=== PATIENT | female | born 1990 | race Caucasian/White ===

== ENCOUNTER 2021-07-17 05:32 | Inpatient (IN) | payer SELFPAY ==
[~2021-07-17] VITALS: Ht 162 cm; Wt 127.0 kg
[~2021-07-17 05:32] MED LIST: BUTA-234 PO
[2021-07-17] MEDS ORDERED: RT-ALBUTEROL HFA 8.5 GM INHALER IH ONE (05:55)
--- NOTE | 2021-07-17 06:23 | ED General ---
General Chief Complaint: COVID19 Suspect/Confirmed Stated Complaint: SOB,CP Source of Information: Patient Exam Limitations: No Limitations (SARA MORRIS MD) History of Present Illness Date Seen by Provider: Jul 17, 2021 Time Seen by Provider: 05:48 Initial Comments Here with complaint of shortness of breath, wheezing, cough and chest tightness. Onset 2 days ago and has worsened since. Started a new job with new [employer]. She has been vaccinated and has had both doses with the second dose last month. She did have childhood asthma but has not suffered from this as an adult. Denies nausea, vomiting or diarrhea currently although did have vomiting yesterday. Does not have any known contacts with COVID-19. Arrives with O2 sat of 81%. Timing/Duration: 2-3 Days, Getting Worse Severity: Moderate, Severe Associated Systoms: Cough; No Fever/Chills; Nausea/Vomiting, Shortness of Air, Weakness (SARA MORRIS MD) Allergies and Home Medications Allergies Coded Allergies: No Known Drug Allergies (Unverified , 04/09/14) Patient Home Medication List Home Medication List Reviewed: Yes (SARA MORRIS MD) Butalb/Acetaminophen/Caffeine (Hzpanl-Wtdu-Rpad 50-325-40 Tab) 1 Each Tablet, 1 EACH PO Q4HR PRN Prescribed by: JESI ESCALONA on 04/09/14 0358 Review of Systems Review of Systems Constitutional: see HPI; No fever; malaise, weakness EENTM: nose congestion, throat pain Respiratory: cough, short of breath, wheezing Cardiovascular: see HPI; No edema Gastrointestinal: No abdominal pain, No diarrhea; vomiting Genitourinary: no symptoms reported Musculoskeletal: no symptoms reported Skin: no symptoms reported Psychiatric/Neurological: No Symptoms Reported (SARA MORRIS MD) All Other Systems Reviewed Negative Unless Noted: Yes (SARA MORRIS MD) Past Cpncoyr-Rgrmwn-Letniv Hx Patient Social History Tobacco Use?: No Substance use?: No Alcohol Use?: No (SARA MORRIS MD) Tobacco Use?: Yes Tobacco type used: Cigarettes (DON MCKENZIE MD) Immunizations Up To Date Tetanus Booster (TDap): More than 5yrs (SARA MORRIS MD) Past Medical History Surgeries: No Respiratory: Yes Asthma Cardiac: No Neurological: No Reproductive Disorders: No Sexually Transmitted Disease: No HIV/AIDS: No Adverse Reaction/Blood Tranf: No (SARA MORRIS MD) Family Medical History Reviewed Nursing Family Hx (SARA MORRIS MD) No Pertinent Family Hx (SARA MORRIS MD) Physical Exam-Suspected Sepsis Physical Exam Vital Signs Vital Signs - First Documented 07/17/21 05:50 Temp 36.9 Pulse 105 Resp 24 B/P (MAP) 148/80 (102) Pulse Ox 94 O2 Delivery OxyMask O2 Flow Rate 8.00 (DON MCKENZIE MD) Vital Signs Capillary Refill : (SARA MORRIS MD) Height, Weight, BMI Height: 5'4" Weight: 240lbs. oz. 108.550902gj; BMI Method: General Appearance: WD/WN, Moderate Distress, Obese HEENT: PERRL/EOMI, Pharyngeal Erythema, Other (Nasal congestion) Neck: Full Range of Motion, Non Tender, Supple Respiratory: Decreased Breath Sounds, Respiratory Distress (Moderate), Wheezing (Throughout) Cardiovascular: No Murmur, Tachycardia Gastrointestinal: Non Tender, Soft Back: Normal Inspection, No CVA Tenderness, No Vertebral Tenderness Extremity: Normal Range of Motion, Non Tender Neurologic/Psychiatric: Alert, Oriented x3 Skin: normal color, warm/dry (SARA MORRIS MD) Focused Exam Lactate Level 07/17/21 06:30: Lactic Acid Level 0.98 (DON MCKENZIE MD) Lactic Acid Level Laboratory Tests Test 07/17/21 06:30 Lactic Acid Level 0.98 MMOL/L (0.50-2.00) (DON MCKENZIE MD) Progress/Results/Core Measures Suspected Sepsis SIRS Temperature: Pulse: Respiratory Rate: Laboratory Tests 07/17/21 06:08: Blood Pressure / Mean: 07/17/21 06:30: Laboratory Tests 07/17/21 06:08: Creatinine 0.72, Total Bilirubin 0.3 (SARA MORRIS MD) Results/Orders Lab Results Laboratory Tests Test 07/17/21 05:57 07/17/21 06:08 07/17/21 06:30 07/17/21 06:47 Range/Units Influenza Type A (RT-PCR) Not Detected Not Detecte Influenza Type B (RT-PCR) Not Detected Not Detecte SARS-CoV-2 RNA (RT-PCR) Not Detected Not Detecte Sodium Level 139 135-145 MMOL/L Potassium Level 4.2 3.6-5.0 MMOL/L Chloride Level 107 98-107 MMOL/L Carbon Dioxide Level 20 L 21-32 MMOL/L Anion Gap 12 5-14 MMOL/L Blood Urea Nitrogen 10 7-18 MG/DL Creatinine 0.72 0.60-1.30 MG/DL Estimat Glomerular Filtration Rate 96 BUN/Creatinine Ratio 14 Glucose Level 114 H 70-105 MG/DL Calcium Level 8.5 8.5-10.1 MG/DL Corrected Calcium 8.7 8.5-10.1 MG/DL Total Bilirubin 0.3 0.1-1.0 MG/DL Aspartate Amino Transf (AST/SGOT) 24 5-34 U/L Alanine Aminotransferase (ALT/SGPT) 15 0-55 U/L Alkaline Phosphatase 73 40-136 U/L C-Reactive Protein High Sensitivity 3.90 H 0.00-0.50 MG/DL Total Protein 7.5 6.4-8.2 GM/DL Albumin 3.8 3.2-4.5 GM/DL Procalcitonin 0.03 <0.10 NG/ML Serum Test, Qualitative NEGATIVE NEGATIVE Lactic Acid Level 0.98 0.50-2.00 MMOL/L White Blood Count 7.5 4.3-11.0 10^3/uL Red Blood Count 4.64 3.80-5.11 10^6/uL Hemoglobin 14.0 11.5-16.0 g/dL Hematocrit 42 35-52 % Mean Corpuscular Volume 91 80-99 fL Mean Corpuscular Hemoglobin 30 25-34 pg Mean Corpuscular Hemoglobin Concent 33 32-36 g/dL Red Cell Distribution Width 13.1 10.0-14.5 % Platelet Count 250 130-400 10^3/uL Mean Platelet Volume 10.0 9.0-12.2 fL Immature Granulocyte % (Auto) 0 % Neutrophils (%) (Auto) 69 42-75 % Lymphocytes (%) (Auto) 20 12-44 % Monocytes (%) (Auto) 9 0-12 % Eosinophils (%) (Auto) 1 0-10 % Basophils (%) (Auto) 1 0-10 % Neutrophils # (Auto) 5.2 1.8-7.8 10^3/uL Lymphocytes # (Auto) 1.5 1.0-4.0 10^3/uL Monocytes # (Auto) 0.7 0.0-1.0 10^3/uL Eosinophils # (Auto) 0.1 0.0-0.3 10^3/uL Basophils # (Auto) 0.0 0.0-0.1 10^3/uL Immature Granulocyte # (Auto) 0.0 0.0-0.1 10^3/uL Test 07/17/21 07:34 Range/Units Prothrombin Time 14.5 12.2-14.7 SEC INR Comment 1.1 0.8-1.4 Activated Partial Thromboplast Time 29 24-35 SEC D-Dimer 0.41 0.00-0.49 UG/ML (DON MCKENZIE MD) My Orders Orders - DON MCKENZIE MD Cbc With Automated Diff (07/17/21 06:03) Comprehensive Metabolic Panel (07/17/21 06:03) Blood Culture (07/17/21 06:03) Sputum Culture (07/17/21 06:03) Urinalysis (07/17/21 06:03) Urine Culture (07/17/21 06:03) Protime With Inr (07/17/21 06:03) Partial Thromboplastin Time (07/17/21 06:03) Chest 1 View, Ap/Pa Only (07/17/21 06:03) Ed Iv/Invasive Line Start (07/17/21 06:03) Ed Iv/Invasive Line Start (07/17/21 06:03) Vital Signs Adult Sepsis Patie Q15M (07/17/21 06:03) O2 (07/17/21 06:03) Remove Rings In Anticipation O (07/17/21 06:03) Lactic Acid Analyzer (07/17/21 06:03) Fibrin Degradation Products (07/17/21 06:03) Procalcitonin (Pct) (07/17/21 06:03) Hs C Reactive Protein (07/17/21 06:03) Influenza A And B By Pcr (07/17/21 06:03) Covid 19 Inhouse Test (07/17/21 06:03) Hcg,Qualitative Serum (07/17/21 06:03) Dexamethasone Injection (Decadron Inje (07/17/21 06:15) Lactated Ringers (Lr 1000 Ml Iv Solution (07/17/21 06:30) Albuterol Pre-Mix Nebs (Rt) (Proventil (07/17/21 08:30) Albuterol/Ipra Inhalation Soln (Duoneb I (07/17/21 08:30) Svn Small Volume Nebulizer (07/17/21 08:30) Svn Small Volume Nebulizer (07/17/21 08:30) Magnesium 1 Gm/100 Ml Ivpb (Magnesium Robles (07/17/21 08:45) (DON MCKENZIE MD) Medications Given in ED Current Medications Medications Dose Ordered Sig/Larry Route Start Time Stop Time Status Last Admin Dose Admin Albuterol Sulfate 8.5 gm STK-MED ONCE IH 07/17/21 05:55 07/17/21 05:57 DC 07/17/21 06:12 8.5 GM Dexamethasone Sodium Phosphate 6 mg ONCE ONCE IV 07/17/21 06:15 07/17/21 06:17 DC 07/17/21 06:50 6 MG Lactated Ringer's 1,000 ml @ 0 mls/hr Q0M ONCE IV 07/17/21 06:30 07/17/21 06:31 DC 07/17/21 06:50 1,000 MLS/HR (DON MCKENZIE MD) Vital Signs/I&O 07/17/21 07/17/21 05:50 05:50 Temp 36.9 Pulse 105 Resp 24 B/P (MAP) 148/80 (102) Pulse Ox 94 94 O2 Delivery OxyMask OxyMask O2 Flow Rate 8.00 (DON MCKENZIE MD) Vital Signs/I&O Capillary Refill : (SARA MORRIS MD) Progress Note : Progress Note Seen and evaluated. Placed on O2 via oxygen mask at 6 L to increase O2 saturation to 93%. Sepsis protocol initiated. Covid 19 screening and influenza screening initiated. Albuterol MDI 4 puffs via spacer given. We will give Decadron 6 mg IV. Monitor patient. Care transferred to Dr. Mckenzie at 0605 with all labs and x-ray pending. 0640: Unable to get IV after multiple sticks. I did place 20-gauge Angiocath to the area of the lower bicep on the right arm via ultrasound guidance x1 stick without difficulty. Labs drawn. Dr. Mckenzie to assume care. (SARA MORRIS MD) Progress Note : Time: 08:38 Progress Note Care of this patient was assumed from Dr. oMrris. Work-up was completely unremarkable. Despite getting dexamethasone and 4 puffs of an albuterol inhaler, she is still quite wheezy and hypoxic with an oxygen saturation of 88% on room air during my reassessment. Patient describes a history of childhood asthma but has not needed to treat it as an adult. Admission is necessary at this point. We will give her some magnesium and an hour-long nebulizer treatment in the ER while awaiting transfer to the medical floor. (DON MCKEZNIE MD) Diagnostic Imaging Diagonstic Imaging: Xray Plain Films/CT/US/NM/MRI: chest Comments Chest x-ray viewed by me and report reviewed. See report below: NAME: ALFONSO UNDERWOOD [facility] REC#: [id number] PT STATUS: REG ER : 1990 PHYSICIAN: DON MCKENZIE MD ADMIT DATE: 07/17/21/ER Draft Date of Exam:07/17/21 CHEST 1 VIEW, AP/PA ONLY INDICATION: hypoxia COMPARISON: None FINDINGS: Single frontal view of the chest demonstrates normal heart size and pulmonary vascularity. The lungs are well aerated and clear. No large pleural effusion or pneumothorax is seen. The visualized osseous structures show no acute abnormalities. IMPRESSION: 1. No acute cardiopulmonary process. Dictated on workstation # [id number] Dict: 07/17/2116 Trans: 07/17/2116 [facility] [id number] Interpreted by: JOSELO VELA MD (DON MCKENZIE MD) Departure Communication (Admissions) Time/Spoke to Admitting Phy: 08:35 Dr. Ashraf (DON MCKENZIE MD) Impression Primary Impression: Asthma exacerbation Qualified Codes: J45.901 - Unspecified asthma with (acute) exacerbation Additional Impression: Hypoxia Disposition: ADMITTED INPATIENT Condition: Stable Admissions Decision to Admit Reason: Admit from ER (General) Decision to Admit/Date: Jul 17, 2021 Time/Decision to Admit Time: 08:30 (DON MCKENZIE MD) Departure-Patient Inst. Referrals: NO,LOCAL PHYSICIAN (PCP/Family) Primary Care Physician SARA MORRIS MD Jul 17, 2021 06:23 DON MCKENZIE MD Jul 17, 2021 08:03
[2021-07-17 06:30] LABS: ALBUMIN 3.8 GM/DL (3.2-4.5); POTASSIUM 4.2 MMOL/L (3.6-5.0)
[2021-07-17] MEDS ORDERED: LACTATED RINGERS 1,000 ML IV ONE (06:30)
[2021-07-17 06:32] LABS: CALCIUM 8.5 MG/DL (8.5-10.1)
[2021-07-17 06:33] LABS: TOTAL PROTEIN 7.5 GM/DL (6.4-8.2)
[2021-07-17 06:35] LABS: BILIRUBIN,TOTAL 0.3 MG/DL (0.1-1.0)
[2021-07-17 06:37] LABS: CREATININE SERUM 0.72 MG/DL (0.60-1.30)
[2021-07-17 06:50] LABS: BASOPHILS % (AUTO) 1 % (0-10); EOSINOPHILS # (AUTO) 0.1 10^3/uL (0.0-0.3); EOSINOPHILS % (AUTO) 1 % (0-10); HEMATOCRIT 42 % (35-52); LYMPHOCYTES # (AUTO) 1.5 10^3/uL (1.0-4.0); LYMPHOCYTES % (AUTO) 20 % (12-44); MEAN CORPUSCULAR HEMOGLOBIN 30 pg (25-34); MEAN CORPUSCULAR HGB CONC 33 g/dL (32-36); MEAN CORPUSCULAR VOLUME 91 fL (80-99); MONOCYTES # (AUTO) 0.7 10^3/uL (0.0-1.0); MONOCYTES % (AUTO) 9 % (0-12); NEUTROPHILS # (AUTO) 5.2 10^3/uL (1.8-7.8); NEUTROPHILS % (AUTO) 69 % (42-75); PLATELET COUNT 250 10^3/uL (130-400); WHITE BLOOD COUNT 7.5 10^3/uL (4.3-11.0)
--- NOTE | 2021-07-17 07:17 | Diagnostic Imaging Report ---
INDICATION: hypoxia COMPARISON: None FINDINGS: Single frontal view of the chest demonstrates normal heart size and pulmonary vascularity. The lungs are well aerated and clear. No large pleural effusion or pneumothorax is seen. The visualized osseous structures show no acute abnormalities. IMPRESSION: 1. No acute cardiopulmonary process. Dictated by: Dictated on workstation # [id number]
[2021-07-17 08:02] LABS: FIBRIN DEGRADATION PRODUCTS 0.41 UG/ML (0.00-0.49); INR 1.1 (0.8-1.4); PROTHROMBIN TIME PATIENT 14.5 SEC (12.2-14.7)
[2021-07-17] MEDS ORDERED: RT-ALBUTEROL/IPRATROPIUM 3 ML (DUONEB) VIAL INH ONE (08:30)
[2021-07-17] MEDS ORDERED: RT-ALBUTEROL SULF 2.5 MG/3 ML PRE-MIX VIAL INH STA (08:30)
[2021-07-17] MEDS ORDERED: MAGNESIUM 1 GM/100 ML IVPB 100 ML IV ONE (08:45)
[2021-07-17 08:58] LABS: BILIRUBIN,URINE NEGATIVE (NEGATIVE); CLARITY,URINE CLEAR; COLOR,URINE YELLOW; GLUCOSE, URINE (UA) NEGATIVE (NEGATIVE); KETONES,URINE NEGATIVE (NEGATIVE); LEUKOCYTE ESTERASE ,URINE 1+ (NEGATIVE); NITRITE,URINE NEGATIVE (NEGATIVE); PROTEIN,URINE 1+ (NEGATIVE)
[2021-07-17 09:11] LABS: BACTERIA,URINE LARGE /HPF
[2021-07-17 10:18] VITALS: BP 122/80
[2021-07-17] MEDS ORDERED: RT-ALBUTEROL SULF 2.5 MG/3 ML PRE-MIX VIAL INH PRN (10:30)
[2021-07-17] MEDS ORDERED: ONDANSETRON 4 MG/2 ML (SDV) Z0FRAN IVP PRN (10:30)
[2021-07-17] MEDS: LACTATED RINGERS 1,000 ML IV SCH ×2 (10:51→21:17)
--- NOTE | 2021-07-17 10:58 | History & Physical-Hospitalist ---
NATALIO BONILLA 07/17/21 1058: History of Present Illness HPI/Chief Complaint The patient is a 30 YO female, with a history of asthma in childhood, who is in the hospital for an acute asthma exacerbation. The patient reports, experiencing shortness of breath and chest tightness starting on Saturday, which worsened with time. Her symptoms were the worst yesterday night. The patient reports a history of cigarette smoking for 10 years, smoking 1-2 packs per day. She had an episode of vomiting last night at 5pm, with no associated nausea. Date Seen 07/17/21 Attending Physician Tejal Almonte MD PCP No,Local Physician Referring Physician Date of Admission Jul 17, 2021 at 08:36 Home Medications & Allergies Home Medications Reviewed patient Home Medication Reconciliation performed by pharmacy medication reconciliations process maintenance technician and/or nursing. Patients Allergies have been reviewed. Allergies Allergies Coded Allergies No Known Drug Allergies (Unverified04/09/14) Past Aalwylg-Mwejxh-Kktpfi Hx Patient Social History Tobacco Use?: Yes Tobacco type used: Cigarettes Smoking Status: Current Everyday Smoker Substance use?: No Alcohol Use?: No Pt feels they are or have been: No Immunizations Up To Date First/Initial COVID19 Vaccinat: 05/2021 Second COVID19 Vaccination Juanito: 06/2021 Tetanus Booster (TDap): More Than 5 Years Current Status status: No status: No Communicates: Verbally Primary Language: Israeli Preferred Spoken Language: Israeli Past Medical History Asthma Sexually Transmitted Disease: No HIV/AIDS: No Adverse Reaction/Blood Tranf: No Family Medical History Reviewed Nursing Family Hx No Pertinent Family Hx Review of Systems Constitutional: No chills, No fever EENTM: No blurred vision, No double vision Respiratory: short of breath, wheezing Gastrointestinal: No nausea; vomiting (yesterday at 5pm ) Genitourinary: No dysuria, No hematuria Musculoskeletal: No joint pain, No muscle pain Psychiatric/Neurological: Denies Depressed, Denies Emotional Problems Physical Exam Physical Exam Vital Signs Vital Signs - First Documented 07/17/21 05:50 Temp 36.9 Pulse 105 Resp 24 B/P (MAP) 148/80 (102) Pulse Ox 94 O2 Delivery OxyMask O2 Flow Rate 8.00 Capillary Refill : Height, Weight, BMI Height: 5'4" Weight: 240lbs. oz. 108.812662yx; 48.00 BMI Method: General Appearance: No Apparent Distress, WD/WN, Obese Eyes: Bilateral Eye Normal Inspection, Bilateral Eye PERRL, Bilateral Eye EOMI HEENT: PERRL/EOMI Respiratory: Chest Non Tender, No Accessory Muscle Use, Wheezing (bilaterally ) Cardiovascular: Tachycardia Gastrointestinal: No Organomegaly, No Pulsatile Mass, Non Tender Rectal: Deferred Extremity: Normal Inspection, No Calf Tenderness, No Pedal Edema Neurologic/Psychiatric: Alert, Oriented x3, No Motor/Sensory Deficits, Normal Mood/Affect Skin: Normal Color, Warm/Dry Results Results/Procedures Labs Laboratory Tests 07/17/21 06:08 07/17/21 06:47 Patient resulted labs reviewed. Assessment/Plan Assessment and Plan 30 yo female with an acute asthma exacerbation, tobacco use disorder, and obesity. Acute asthma exacerbation Continue albuterol, and prednisone therapy Tobacco use disorder Recommended smoking cessation, PT understands this will help reduce repeat asthma exacerbations Obesity No acute management at this time TEJAL ALMONTE MD 07/17/21 1752: History of Present Illness Source: patient Exam Limitations: no limitations Time Seen by a Provider: 11:15 Past Srvwumc-Cdihjn-Esdwqq Hx Patient Social History Tobacco Use?: Yes Tobacco type used: Cigarettes Smoking Status: Current Everyday Smoker Past Medical History Asthma Family Medical History No Pertinent Family Hx Results Results/Procedures Imaging: Reviewed Imaging Report Assessment/Plan Admission Diagnosis Acute asthma exacerbation Admission Status: Inpatient Order (span 2 midnights) Reason for Inpatient Admission: Respiratory failure Assessment and Plan Admitted with acute respiratory failure due to asthma exacerbation. Started on steroids and breathing treatments. Diagnosis/Problems Diagnosis/Problems (1) Acute respiratory failure with hypoxia Status: Acute (2) Acute asthma exacerbation Status: Acute (3) Tobacco abuse Status: Chronic (4) Morbid obesity Status: Chronic Supervisory-Addendum Brief Verification & Attestation Participated in pt care: history, MDM, physical Personally performed: exam, history, MDM, supervision of care Care discussed with: Medical Student Procedures: n/a Results interpretation: Verified all documentation A medical student performed and documented this service in my presence. I reviewed and verified all information documented by the medical student and made modifications to such information, when appropriate. I personally performed the physical exam and medical decision making. NATALIO BONILLA Jul 17, 2021 10:58 TEJAL ALMONTE MD Jul 17, 2021 17:52
[2021-07-17 11:24] VITALS: BP 121/66
[2021-07-17] MEDS ORDERED: ACET-2267 PO (14:19)
[2021-07-17] MEDS ORDERED: IBUP-2473 PO (14:21)
[2021-07-17 15:58] VITALS: BP 130/77
[2021-07-17] MEDS: RT-ALBUTEROL/IPRATROPIUM 3 ML (DUONEB) VIAL INH SCH ×2 (18:54→21:49)
[2021-07-17 19:55] VITALS: BP 129/89
[2021-07-17] MEDS ORDERED: ALPRAZolam 0.25 MG (XANAX) TAB PO PRN (20:30)
[2021-07-17] MEDS ORDERED: morphine INJ 10 MG/ML 1ML (SYR OR VIAL) IVP PRN (20:30)
[2021-07-17] MEDS ORDERED: LOPERAMIDE 2 MG (IMODIUM) TABLET PO PRN (20:30)
[2021-07-17] MEDS ORDERED: diphenhydrAMINE 25 MG TAB (BENADRYL) PO PRN (20:30)
[2021-07-17] MEDS ORDERED: MELATONIN 3 MG TABLET PO PRN (20:30)
[2021-07-17] MEDS ORDERED: ACETAMINOPHEN 500 MG TAB (TYLENOL) PO PRN (20:30)
[2021-07-17] MEDS ORDERED: DOCUSATE SODIUM 100 MG (COLACE) CAP PO PRN (20:30)
[2021-07-17] MEDS ORDERED: HYDROcodone/APAP 5 MG/325 MG (LORTAB) TAB PO PRN (20:30)
[2021-07-17] MEDS ORDERED: CALCIUM CARBONATE 500 MG (TUMS) TAB.CHEW PO PRN (20:30)
[2021-07-17] MEDS: SENNA W/DOCUSATE (SENOKOT S) TABLET PO SCH (21:18)
[2021-07-17] MEDS: ENOXAPARIN 40 MG/0.4 ML (LOVENOX) SYR SC SCH (23:24)
[2021-07-18 00:45] VITALS: BP 122/76
[2021-07-18] MEDS: RT-ALBUTEROL/IPRATROPIUM 3 ML (DUONEB) VIAL INH SCH ×6 (02:28→21:32)
[2021-07-18 04:58] VITALS: BP 118/70
[2021-07-18] MEDS ORDERED: predniSONE 20 MG TAB PO SCH (07:00)
[2021-07-18] MEDS: LACTATED RINGERS 1,000 ML IV SCH (07:26)
[2021-07-18 08:10] VITALS: BP 130/81
[2021-07-18] MEDS: SENNA W/DOCUSATE (SENOKOT S) TABLET PO SCH ×2 (09:03→19:53)
[2021-07-18] MEDS: ENOXAPARIN 40 MG/0.4 ML (LOVENOX) SYR SC SCH ×2 (09:04→20:15)
[2021-07-18 11:24] VITALS: BP 133/87
[2021-07-18] MEDS ORDERED: FLUTICASONE/VILANTEROL 200 MCG 14'S (BREO) IH SCH (11:30)
--- NOTE | 2021-07-18 11:33 | Pulmonary Consultation ---
History of Present Illness History of Present Illness Date Seen by Provider: Jul 18, 2021 Time Seen by Provider: 11:28 Date of Admission 07/17/21 History of Present Illness She is a 30-year-old female with past medical history of morbid obesity and childhood asthma which she has been free of asthma during the last several years was in her usual state of health until about 2 days ago and started having chest tightness on Saturday and started wheezing yesterday that is on Saturday. She denies any fever. She smokes about 1 to 2 packs of cigarettes per day for over the last 10 years. Recently she was not using any bronchodilators. She denies any exposure to Covid patient. She was found to be hypoxic on room air with an oxygen saturation of 81 initially requiring 6 L of oxygen and admitted to the hospital with exacerbation of asthma and started on initially dexamethasone followed by oral prednisone. Today I was called on consultation to see whether patient can be discharged and recommendations on discharge medications. . Today I have made a video visit and discussed with the patient and she feels better and eager to go home. She is able to walk around in the hallway denies any wheezing today. She is on a room air. I have discussed with the attending physician Dr. Ashraf and he feels that she is looking much better and wants to discharge her home. We will plan discharge on high-dose prednisone in addition to albuterol inhaler, Breo Ellipta if her peak flows are optimal. Otherwise to keep her another day and give iv steroids.. Allergies and Home Medications Allergies Coded Allergies: No Known Drug Allergies (Unverified , 04/09/14) Home Medications Acetaminophen 500 Mg Tablet, 1,000 MG PO DAILY PRN for PAIN-MILD (1-4), (Reported) TAKES 2 (500MG) TABLETS Ibuprofen 200 Mg Tablet, 400 MG PO DAILY PRN for PAIN-MILD (1-4), (Reported) TAKES 2 (200MG) TABLETS Past Medical/Social/Family Hx Patient Social History Tobacco Use?: Yes Tobacco type used: Cigarettes Smoking Status: Current Everyday Smoker Use of E-Cig and/or Vaping dev: No Substance use?: No Substance frequency: Once in a while Alcohol Use?: No Alcohol type: Hard Liquor Alcohol Frequency: Once in a while Pt stated abuse/neglect: No Immunizations Up To Date Influenza Vaccine Up-to-Date: Yes; Up-to-Date First/Initial COVID19 Vaccinat: 05/2021 Second COVID19 Vaccination Juanito: 06/2021 Tetanus Booster (TDap): More Than 5 Years Current Status status: No status: No Advance Directives: No Communicates: Verbally Primary Language: Barbadian Preferred Spoken Language: Barbadian Is interpretation needed?: No Implanted or Applied Medical D: None Review of Systems Constitutional: see HPI Other ROS PER ATTENDING Sepsis Event Evaluation Height, Weight, BMI Height: 5'4" Weight: 240lbs. oz. 108.072247ww; 48.39 BMI Method: Exam Exam Patient acknowledged, consented, and participated in this virtual visit which was conducted using real time audio/video Vital Signs Date Time Temp Pulse Resp B/P (MAP) Pulse Ox O2 Delivery O2 Flow Rate FiO2 07/18/21 11:24 36.8 100 18 133/87 (102) 94 Room Air 07/18/21 11:06 96 OxyMask 07/18/21 09:00 OxyMask 1.00 07/18/21 08:10 36.4 92 22 130/81 (97) 98 OxyMask 2.00 07/18/21 07:31 96 OxyMask 1.00 07/18/21 04:58 36.3 82 24 118/70 (86) 96 OxyMask 2.00 07/18/21 02:28 96 OxyMask 2.00 07/18/21 00:45 36.3 81 22 122/76 (91) 99 OxyMask 3.00 07/17/21 21:49 95 OxyMask 5.00 07/17/21 20:00 99 OxyMask 4.00 07/17/21 19:55 36.6 99 25 129/89 (102) 96 OxyMask 6.00 07/17/21 18:54 93 OxyMask 7.00 07/17/21 16:57 96 OxyMask 6.00 07/17/21 15:58 36.4 90 24 130/77 (94) 97 OxyMask 6.00 I & O 07/18/21 07:00 Intake Total 1985 ml Balance 1985 ml Height & Weight Height: 5'4" Weight: 240lbs. oz. 108.949173nu; 48.39 BMI Method: General Appearance: No Apparent Distress, WD/WN, Obese HEENT: PERRL/EOMI Neck: Full Range of Motion, Non Tender, Supple Respiratory: Chest Non Tender, No Accessory Muscle Use, Other (NO WHEEZING AT THIS TIME) Cardiovascular: Tachycardia Extremity: Normal Inspection, No Calf Tenderness, No Pedal Edema Neurologic/Psychiatric: Alert, Oriented x3, No Motor/Sensory Deficits, Normal Mood/Affect Skin: Normal Color, Warm/Dry Other comments PE PER ATTENDING. Results Lab Laboratory Tests 07/17/21 06:08 07/17/21 06:47 Assessment/Plan Assessment/Plan 1. EXACERBATION ASTHMA IMPROVING. 2. HYPOXIA RESOLVED. 3. MORBID OBESITY. 4.TOBACCO ABUSE DISORDER. PLAN. 1. CHECK PEAK FLOW AND IF ADEQUATE MAY DISCHARGE ON PO PREDNISONE AND BREO ELLIPTA AND ALBUTEROL.MDI 2. IF PEAK FLOW LESS THAN OPTIMAL GIVE HER SOLUMEDROL FOR A DAY OR TWO AND KEEP MONITORING HER PEAK FLOWS 3. CHECK RESPIRATORY VIRAL PCRS TO R/O INFECTIONS LIKE RSV. 4. ADVISED TO QUIT SMOKING. 5. WEIGHT REDUCTION WOULD HELP HER BREATHING IN THE LONG RUN. Critical Care: Critically Ill Patient Time spent with patient (mins): 40 Diagnosis/Problems Problems/Diagonsis (1) Acute asthma exacerbation Status: Acute (2) Tobacco abuse Status: Chronic (3) Morbid obesity Status: Chronic ADELIA AC MD Jul 18, 2021 11:33
[2021-07-18] MEDS ORDERED: RT--FLUTICASONE/SALMETEROL 232-14 (AIRDUO RespiCLICK) IH SCH ×2 (12:00→21:00)
--- NOTE | 2021-07-18 12:14 | Progress Note - Hospitalist ---
NATALIO BONILLA 07/18/21 1214: Subjective HPI/CC On Admission Date Seen by Provider: Jul 18, 2021 Time Seen by Provider: 08:45 Subjective/Events-last exam PT was laying in bed comfortably this morning. She was wearing an Oxymask. Patient reports that her breathing is better compared to yesterday. She reports still having coughing which is unchanged compared to yesterday. Denies fevers. Review of Systems General: No Chills, No Night Sweats HEENT: No Head Aches, No Visual Changes Pulmonary: Dyspnea (improved), Cough Cardiovascular: No: Chest Pain, Palpitations Gastrointestinal: No: Nausea, Vomiting Musculoskeletal: other (no joint pain, no muscle pain ) Focused Exam Lactate Level 07/17/21 06:30: Lactic Acid Level 0.98 Objective Exam Vital Signs Vital Signs Date Time Temp Pulse Resp B/P (MAP) Pulse Ox O2 Delivery O2 Flow Rate FiO2 07/18/21 11:38 Room Air 07/18/21 11:24 36.8 100 18 133/87 (102) 94 07/18/21 09:00 1.00 Capillary Refill : General Appearance: No Apparent Distress, WD/WN, Obese HEENT: PERRL/EOMI Respiratory: Chest Non Tender, No Accessory Muscle Use, No Respiratory Distress, Wheezing (bilateral on anterior posts) Cardiovascular: Regular Rate, Rhythm, No Edema, No Murmur Gastrointestinal: No Organomegaly, No Pulsatile Mass, Non Tender, Soft Rectal: Deferred Neurologic/Psychiatric: Alert, Oriented x3, No Motor/Sensory Deficits, Normal Mood/Affect Skin: Normal Color, Warm/Dry Results/Procedures Lab Patient resulted labs reviewed. Imaging: Reviewed Imaging Report Assessment/Plan Assessment and Plan Assess & Plan/Chief Complaint 30 yo female with an acute asthma exacerbation, tobacco use disorder, and obesity. Acute asthma exacerbation Continue albuterol, and prednisone therapy, DC Oxymask. Pulmonology consulted to discuss asthma home medication. Tobacco use disorder Recommended smoking cessation, PT understands this will help reduce repeat asthma exacerbations Obesity No acute management at this time ROSAURA ALMONTE MD 07/18/21 1623: Subjective HPI/CC On Admission Time Seen by Provider: 10:20 Assessment/Plan Assessment and Plan Assess & Plan/Chief Complaint Pulmonology consulted. Recommended peak flow which was severely decreased. Transitioned to IV steroids. MAT protocol. Monitor closely. Diagnosis/Problems Diagnosis/Problems (1) Acute asthma exacerbation Status: Acute (2) Tobacco abuse Status: Chronic (3) Morbid obesity Status: Chronic Supervisory-Addendum Brief Verification & Attestation Participated in pt care: history, MDM, physical Personally performed: exam, history, MDM, supervision of care Care discussed with: Medical Student Procedures: n/a Results interpretation: Verified all documentation A medical student performed and documented this service in my presence. I reviewed and verified all information documented by the medical student and made modifications to such information, when appropriate. I personally performed the physical exam and medical decision making. NATALIO BONILLA Jul 18, 2021 12:14 ROSAURA ALMONTE MD Jul 18, 2021 16:23
[2021-07-18] MEDS: methylPREDNISolone 40 MG/ML (Solu-MEDROL) VIAL IV SCH ×2 (15:34→20:15)
[2021-07-18 16:00] VITALS: BP 136/77
[2021-07-18 19:58] VITALS: BP 148/93
[2021-07-18] MEDS: RT--FLUTICASONE/SALMETEROL 232-14 (AIRDUO RespiCLICK) IH SCH (21:34)
[2021-07-19] VITALS (7 sets, daily range): BP systolic 115–163; BP diastolic 61–83
[2021-07-19] MEDS: RT-ALBUTEROL/IPRATROPIUM 3 ML (DUONEB) VIAL INH SCH ×6 (03:18→21:59)
[2021-07-19] MEDS: methylPREDNISolone 40 MG/ML (Solu-MEDROL) VIAL IV SCH ×3 (04:48→20:10)
[2021-07-19] MEDS: RT--FLUTICASONE/SALMETEROL 232-14 (AIRDUO RespiCLICK) IH SCH ×2 (07:23→21:59)
[2021-07-19] MEDS: SENNA W/DOCUSATE (SENOKOT S) TABLET PO SCH ×2 (08:07→20:09)
[2021-07-19] MEDS: ENOXAPARIN 40 MG/0.4 ML (LOVENOX) SYR SC SCH ×2 (08:07→20:10)
--- NOTE | 2021-07-19 09:23 | Pulmonary Progress Note ---
Subjective Date Seen by a Provider: Jul 19, 2021 Time Seen by a Provider: 09:16 Subjective/Events-last exam Patient yesterday had a peak flow of only about less than 100 and she is kept in the house. Apparently last night she became hypoxic requiring supplemental oxygen. The oxygen saturation is as low as 85%. Today she is feeling slightly better and peak flow is 190. She is still wheezing however her exercise tolerance slightly improved. She does admit that she does not have any insurance and she cannot afford outpatient medications and she needed some help. I have discussed with the RN to get .e62 addressed the issue if we could help with the medications. She denies any fever. Currently no chest pain. Cough is improving. Review of Systems ROS PER ATTENDING Sepsis Event Evaluation Height, Weight, BMI Height: 5'4" Weight: 240lbs. oz. 108.987711lb; 48.39 BMI Method: Focused Exam Lactate Level 07/17/21 06:30: Lactic Acid Level 0.98 Exam Exam Patient acknowledged, consented, and participated in this virtual visit which was conducted using real time audio/video Vital Signs Date Time Temp Pulse Resp B/P (MAP) Pulse Ox O2 Delivery O2 Flow Rate FiO2 07/19/21 08:00 36.1 87 22 138/76 (96) 88 OxyMask 2.00 07/19/21 07:23 95 OxyMask 2.00 07/19/21 04:51 36.7 72 22 138/78 (98) 93 OxyMask 2.00 07/19/21 03:18 94 Room Air 07/19/21 00:39 36.6 84 20 124/70 (88) 92 OxyMask 2.00 07/18/21 21:34 93 Room Air 07/18/21 20:15 93 Room Air 07/18/21 19:58 36.3 90 20 148/93 (111) 93 Room Air 07/18/21 19:15 96 Room Air 07/18/21 16:00 37.0 91 20 136/77 (96) 94 Room Air 07/18/21 15:29 93 Room Air 07/18/21 11:38 Room Air 07/18/21 11:24 36.8 100 18 133/87 (102) 94 Room Air 07/18/21 11:06 96 OxyMask I & O 07/19/21 07:00 Intake Total 3200 ml Balance 3200 ml Height & Weight Height: 5'4" Weight: 240lbs. oz. 108.046683iv; 48.39 BMI Method: General Appearance: No Apparent Distress, WD/WN, Obese HEENT: PERRL/EOMI Neck: Full Range of Motion, Non Tender, Supple Respiratory: Chest Non Tender, No Accessory Muscle Use, No Respiratory Distress, Wheezing (bilateral on anterior posts) Cardiovascular: Regular Rate, Rhythm, No Edema, No Murmur Extremity: Normal Inspection, No Calf Tenderness, No Pedal Edema Neurologic/Psychiatric: Alert, Oriented x3, No Motor/Sensory Deficits, Normal Mood/Affect Skin: Normal Color, Warm/Dry Other comments VIDEO VISIT MADE AND AUSCULTATED VIA ECHO. SHE HAS MILD DECREASED BREATH SOUNDS BILATERALLY WITH FEW EXPIRATORY RHONCHI POSTERIORLY. S1, S2 HEARD NORMALLY. Results Lab RSV PCR NEGATIVE. PEAK FLOW 190 LPM Meds REVIEWED. Assessment/Plan Assessment/Plan Assessment/Plan 1. EXACERBATION ASTHMA IMPROVING BUT NOT SATISFACTORY TO DISCHARGE 2. HYPOXIA REQUIRING O2. 3. MORBID OBESITY. 4.TOBACCO ABUSE DISORDER. PLAN. 1.CONTINUE IV SOLU-MEDROL AND NEB TREATMENTS. 2.MONITOR PEAK FLOWS 3.MANAGER CASH TO HELP FOR OUT PATIENT MEDICATIONS FINANCES 4. ADVISED TO QUIT SMOKING. 5. WEIGHT REDUCTION WOULD HELP HER BREATHING IN THE LONG RUN. 6. DISCUSSED WITH RN AND PATIENT. Critical Care: Critically Ill Patient Time spent with patient (mins): 20 Diagnosis/Problems Diagnosis/Problems (1) Acute asthma exacerbation Status: Acute (2) Tobacco abuse Status: Chronic (3) Morbid obesity Status: Chronic ADELIA AC MD Jul 19, 2021 09:23
--- NOTE | 2021-07-19 12:07 | Progress Note - Hospitalist ---
NATALIO BONILLA 07/19/21 1207: Subjective HPI/CC On Admission Date Seen by Provider: Jul 19, 2021 Time Seen by Provider: 08:30 Subjective/Events-last exam PT was laying in bed comfortably this morning. She reports her breathing symptoms seem to cycle between improving, and getting worse. She was on room air this morning. She denies fevers, nausea and vomiting. Review of Systems General: No Chills, No Night Sweats HEENT: No Head Aches, No Visual Changes Pulmonary: Dyspnea (comes and goes, but reports its as improved), Cough (minor ) Cardiovascular: No: Chest Pain, Palpitations Gastrointestinal: No: Nausea, Vomiting Genitourinary: No Dysuria, No Hematuria Musculoskeletal: No: shoulder pain, leg pain Neurological: No: Weakness, Numbness Focused Exam Lactate Level 07/17/21 06:30: Lactic Acid Level 0.98 Objective Exam Vital Signs Vital Signs Date Time Temp Pulse Resp B/P (MAP) Pulse Ox O2 Delivery O2 Flow Rate FiO2 07/19/21 10:48 97 OxyMask 2.00 07/19/21 08:00 36.1 87 22 138/76 (96) Capillary Refill : Results/Procedures Lab Patient resulted labs reviewed. Imaging: Reviewed Imaging Report Assessment/Plan Assessment and Plan Assess & Plan/Chief Complaint 30 yo female with an acute asthma exacerbation, tobacco use disorder, and obesity. Acute asthma exacerbation Continue albuterol, and prednisone therapy. Continue on room air. Possible DC from hospital tomorrow if she continues to be stable and not worsening. Tobacco use disorder Recommended smoking cessation, PT understands this will help reduce repeat asthma exacerbations Obesity No acute management at this time ROSAURA ALMONTE MD 07/19/21 1719: Subjective HPI/CC On Admission Time Seen by Provider: 11:05 Objective Exam General Appearance: No Apparent Distress, Obese Respiratory: No Respiratory Distress, Wheezing Cardiovascular: Regular Rate, Rhythm, No Edema, No Murmur Gastrointestinal: Normal Bowel Sounds, Non Tender, Soft Extremity: Normal Inspection, Non Tender, No Pedal Edema Neurologic/Psychiatric: Alert, Oriented x3, No Motor/Sensory Deficits, Normal Mood/Affect Skin: Normal Color, Warm/Dry Assessment/Plan Assessment and Plan Assess & Plan/Chief Complaint Admitted with asthma exacerbation. Symptoms improving. Peak flow improving. Continue steroids and inhalers. Diagnosis/Problems Diagnosis/Problems (1) Acute asthma exacerbation Status: Acute (2) Tobacco abuse Status: Chronic (3) Morbid obesity Status: Chronic Supervisory-Addendum Brief Verification & Attestation Participated in pt care: history, MDM, physical Personally performed: exam, history, MDM, supervision of care Care discussed with: Medical Student Procedures: n/a Results interpretation: Verified all documentation A medical student performed and documented this service in my presence. I reviewed and verified all information documented by the medical student and made modifications to such information, when appropriate. I personally performed the physical exam and medical decision making. NATALIO BONILLA Jul 19, 2021 12:07 ROSAURA ALMONTE MD Jul 19, 2021 17:19
[2021-07-20] MEDS: RT-ALBUTEROL/IPRATROPIUM 3 ML (DUONEB) VIAL INH SCH ×6 (02:38→22:17)
[2021-07-20 03:28] VITALS: BP 137/78
[2021-07-20] MEDS: methylPREDNISolone 40 MG/ML (Solu-MEDROL) VIAL IV SCH ×3 (03:28→19:25)
[2021-07-20] MEDS: RT--FLUTICASONE/SALMETEROL 232-14 (AIRDUO RespiCLICK) IH SCH ×2 (07:53→18:38)
[2021-07-20 08:00] VITALS: BP 152/83
[2021-07-20] MEDS: SENNA W/DOCUSATE (SENOKOT S) TABLET PO SCH ×2 (08:22→19:18)
[2021-07-20] MEDS: ENOXAPARIN 40 MG/0.4 ML (LOVENOX) SYR SC SCH ×2 (08:22→19:25)
--- NOTE | 2021-07-20 10:08 | Pulmonary Progress Note ---
Subjective Date Seen by a Provider: Jul 20, 2021 Time Seen by a Provider: 10:01 Subjective/Events-last exam She today states that feeling slightly better and her oxygen needs decreasing but still on O2. she did not yet walked in the room or outside the room. Apparently Deasat study has been ordered. meat process worker reportedly visited her and making arrangements for her help for home meds and possibly oxygen. Video visit made and discussed with patient. she is not in any distress. Review of Systems ROS PER ATTENDING Sepsis Event Evaluation Height, Weight, BMI Height: 5'4" Weight: 240lbs. oz. 108.554989nf; 48.39 BMI Method: Exam Exam Patient acknowledged, consented, and participated in this virtual visit which was conducted using real time audio/video Vital Signs Date Time Temp Pulse Resp B/P (MAP) Pulse Ox O2 Delivery O2 Flow Rate FiO2 07/20/21 08:00 36.4 82 20 152/83 (106) 97 OxyMask 4.00 07/20/21 07:53 93 OxyMask 4.00 07/20/21 03:28 36.6 77 20 137/78 (97) 95 OxyMask 4.00 07/20/21 02:38 93 OxyMask 4.00 07/19/21 23:24 36.4 85 20 115/61 (79) 96 OxyMask 4.00 07/19/21 22:00 99 OxyMask 4.00 07/19/21 20:13 Nasal Cannula 2.00 07/19/21 19:30 37.0 110 20 150/83 (105) 92 OxyMask 2.00 07/19/21 18:34 97 Nasal Cannula 2.00 07/19/21 15:47 36.3 86 20 163/76 (105) 91 Room Air 07/19/21 15:17 97 Nasal Cannula 2.00 07/19/21 12:00 36.6 97 18 127/79 (95) 93 Nasal Cannula 2.00 07/19/21 10:48 97 OxyMask 2.00 I & O 07/20/21 06:59 Intake Total 1880 ml Balance 1880 ml Height & Weight Height: 5'4" Weight: 240lbs. oz. 108.530391yg; 48.39 BMI Method: General Appearance: No Apparent Distress, Obese HEENT: PERRL/EOMI Neck: Full Range of Motion, Non Tender, Supple Respiratory: No Respiratory Distress, Wheezing Cardiovascular: Regular Rate, Rhythm, No Edema, No Murmur Extremity: Normal Inspection, Non Tender, No Pedal Edema Neurologic/Psychiatric: Alert, Oriented x3, No Motor/Sensory Deficits, Normal Mood/Affect Skin: Normal Color, Warm/Dry Other comments PE per attending. she has very few expiratory rhonchi Assessment/Plan Assessment/Plan 1. EXACERBATION ASTHMA IMPROVING SLOWLY 2. HYPOXIA REQUIRING O2. DESAT STUDY PENDING 3. MORBID OBESITY. 4.TOBACCO ABUSE DISORDER. PLAN. 1.CONTINUE IV SOLU-MEDROL AND NEB TREATMENTS. 2.MONITOR PEAK FLOWS 3.SAND HAULER TO HELP FOR OUT PATIENT MEDICATIONS FINANCES 4. ADVISED TO QUIT SMOKING. 5. WEIGHT REDUCTION WOULD HELP HER BREATHING IN THE LONG RUN. 6. DISCUSSED WITH RN AND PATIENT. 7. ONCE HOME O2 ARRANGEMENTS AND MEDICATIONS ARRANGEMENTS MADE MAY DISCHARGE ON STEROIDS PO , ALBUTEROL MDI, BREO ELLIPTA [id number] 1 PUFF DAILY . Critical Care: Critically Ill Patient Time spent with patient (mins): 20 Diagnosis/Problems Diagnosis/Problems (1) Acute asthma exacerbation Status: Acute (2) Tobacco abuse Status: Chronic (3) Morbid obesity Status: Chronic ADELIA AC MD Jul 20, 2021 10:08
[2021-07-20] MEDS ORDERED: FLUTICASONE/VILANTEROL 200 MCG 14'S (BREO) IH SCH (10:45)
--- NOTE | 2021-07-20 11:19 | Progress Note - Hospitalist ---
NATALIO BONILLA 07/20/21 1119: Subjective HPI/CC On Admission Date Seen by Provider: Jul 20, 2021 Time Seen by Provider: 08:45 Subjective/Events-last exam The patient was laying in bed comfortably this morning. She reports feeling better compared to yesterday. She reports that her cough is still there but is "less and less" with time. She reports that her shortness of breath is about this same. Review of Systems General: No Chills, No Night Sweats HEENT: No Head Aches, No Visual Changes Pulmonary: Dyspnea (about the same ), Cough (improving ) Cardiovascular: No: Chest Pain, Palpitations Gastrointestinal: No: Nausea, Vomiting Musculoskeletal: No: shoulder pain, leg pain Objective Exam Vital Signs Vital Signs Date Time Temp Pulse Resp B/P (MAP) Pulse Ox O2 Delivery O2 Flow Rate FiO2 07/20/21 12:00 36.9 100 20 166/92 (116) 91 Nasal Cannula 4.00 Capillary Refill : General Appearance: No Apparent Distress, Obese HEENT: PERRL/EOMI, Pharynx Normal, Moist Mucous Membranes Respiratory: Chest Non Tender, No Accessory Muscle Use, No Respiratory Distress, Wheezing (auscultated bilaterally on anterior posts, but less compared to yesterday) Cardiovascular: No Edema, No Murmur, Tachycardia Gastrointestinal: Normal Bowel Sounds, No Organomegaly, No Pulsatile Mass, Non Tender, Soft Extremity: Normal Inspection, No Calf Tenderness Neurologic/Psychiatric: Alert, Oriented x3, No Motor/Sensory Deficits, Normal Mood/Affect Skin: Normal Color, Warm/Dry Results/Procedures Lab Patient resulted labs reviewed. Imaging: Reviewed Imaging Report Assessment/Plan Assessment and Plan Assess & Plan/Chief Complaint 30 yo female with an acute asthma exacerbation, tobacco use disorder, and obesity. Acute asthma exacerbation Continue albuterol, methylprednisolone and fluticasone/ salmeterol therapy. Patient's status was not well enough for discharge today, she is still on 5L NC. Will try to DC tomorrow on PO prednisone and Breo Ellipta, with an Albuterol rescue inhaler. Tobacco use disorder Recommended smoking cessation, PT understands this will help reduce repeat asthma exacerbations Obesity No acute management at this time ROSAURA ALMONTE MD 07/20/21 1540: Subjective HPI/CC On Admission Time Seen by Provider: 10:40 Assessment/Plan Assessment and Plan Assess & Plan/Chief Complaint Admitted with asthma exacerbation. Peak flows improving. Still requiring supplemental oxygen. Continue steroids and inhalers. Weaning oxygen as able. Patient is anxiously awaiting her discharge. Diagnosis/Problems Diagnosis/Problems (1) Acute asthma exacerbation Status: Acute (2) Acute respiratory failure with hypoxia Status: Acute (3) Tobacco abuse Status: Chronic (4) Morbid obesity Status: Chronic Supervisory-Addendum Brief Verification & Attestation Participated in pt care: history, MDM, physical Personally performed: exam, history, MDM, supervision of care Care discussed with: Medical Student Procedures: n/a Results interpretation: Verified all documentation A medical student performed and documented this service in my presence. I reviewed and verified all information documented by the medical student and made modifications to such information, when appropriate. I personally performed the physical exam and medical decision making. NATALIO BONILLA Jul 20, 2021 11:19 ROSAURA ALMONTE MD Jul 20, 2021 15:40
[2021-07-20 12:00] VITALS: BP 166/92
[2021-07-20 16:00] VITALS: BP 124/81
[2021-07-20 19:50] VITALS: BP 111/54
[2021-07-20 23:24] VITALS: BP 135/66
[2021-07-21] MEDS ORDERED: RT-ALBUTEROL HFA 8.5 GM INHALER IH SCH
[2021-07-21] MEDS: RT-ALBUTEROL/IPRATROPIUM 3 ML (DUONEB) VIAL INH SCH ×4 (02:41→14:40)
[2021-07-21] MEDS: methylPREDNISolone 40 MG/ML (Solu-MEDROL) VIAL IV SCH (03:09)
[2021-07-21] MEDS: RT--FLUTICASONE/SALMETEROL 232-14 (AIRDUO RespiCLICK) IH SCH (07:01)
[2021-07-21 08:18] VITALS: BP 139/71
[2021-07-21] MEDS ORDERED: predniSONE 20 MG TAB PO NR (08:27)
[2021-07-21] MEDS: SENNA W/DOCUSATE (SENOKOT S) TABLET PO SCH (08:33)
[2021-07-21] MEDS: ENOXAPARIN 40 MG/0.4 ML (LOVENOX) SYR SC SCH (08:44)
--- NOTE | 2021-07-21 09:20 | Pulmonary Progress Note ---
Subjective Date Seen by a Provider: Jul 21, 2021 Time Seen by a Provider: 09:15 Subjective/Events-last exam Patient today is awake alert oriented in no acute distress at rest. She walked in the room without much discomfort. A desat study has been done and reportedly she needed oxygen 5 L at rest and 6 L while walking. Upon listening her lungs with echo she had a mild expiratory rhonchi present. Her Solu-Medrol has been discontinued and put on a prednisone 40 mg once a day. She denies any other complaints. It is unusual to have hypoxia this long on a asthmatic hence I ordered a repeat chest x-ray PA and lateral to see whether she has any pneumonia versus atelectasis. Her peak flow pre is 150LPM and post is a 250LPM. Review of Systems ROS PER ATTENDING Sepsis Event Evaluation Height, Weight, BMI Height: 5'4" Weight: 240lbs. oz. 108.988828mu; 48.39 BMI Method: Exam Exam Patient acknowledged, consented, and participated in this virtual visit which was conducted using real time audio/video Vital Signs Date Time Temp Pulse Resp B/P (MAP) Pulse Ox O2 Delivery O2 Flow Rate FiO2 07/21/21 08:18 36.8 103 20 139/71 (93) 95 OxyMask 5.00 07/21/21 07:01 94 OxyMask 5.00 07/21/21 02:42 96 OxyMask 5.00 07/21/21 02:39 96 OxyMask 5.00 07/20/21 23:24 37.0 86 20 135/66 (89) 98 OxyMask 5.00 07/20/21 22:18 96 OxyMask 5.00 07/20/21 19:50 36.9 102 20 111/54 (73) 96 Simple Mask 5.00 07/20/21 19:26 93 Nasal Cannula 5.00 07/20/21 18:38 95 Nasal Cannula 5.00 07/20/21 16:00 36.5 89 18 124/81 (95) 95 Nasal Cannula 5.00 07/20/21 15:32 97 Nasal Cannula 5.00 07/20/21 12:00 36.9 100 20 166/92 (116) 91 Nasal Cannula 4.00 07/20/21 11:11 94 Nasal Cannula 5.00 I & O 07/21/21 07:00 Intake Total 1750 ml Balance 1750 ml Height & Weight Height: 5'4" Weight: 240lbs. oz. 108.056561nq; 48.39 BMI Method: General Appearance: No Apparent Distress, Obese HEENT: PERRL/EOMI, Pharynx Normal, Moist Mucous Membranes Neck: Full Range of Motion, Non Tender, Supple Respiratory: Chest Non Tender, No Accessory Muscle Use, No Respiratory Distress, Wheezing (auscultated bilaterally on anterior posts, but less compared to yesterday) Cardiovascular: No Edema, No Murmur, Tachycardia Extremity: Normal Inspection, No Calf Tenderness Neurologic/Psychiatric: Alert, Oriented x3, No Motor/Sensory Deficits, Normal Mood/Affect Skin: Normal Color, Warm/Dry Assessment/Plan Assessment/Plan 1. EXACERBATION ASTHMA IMPROVING SLOWLY THAN EXPECTED 2. HYPOXIA REQUIRING O2. NEEDS HOME O2 5-6 L N/C 3. MORBID OBESITY. 4.TOBACCO ABUSE DISORDER. 5. R/O ANY ATELECTASIS WITH MUCOUS PLUGGING PLAN. 1.CONTINUE PO PREDNISONE 2.MONITOR PEAK FLOWS 3.BLAST FURNACE KEEPER HELPER TO HELP FOR OUT PATIENT MEDICATIONS FINANCES 4. ADVISED TO QUIT SMOKING. 5. WEIGHT REDUCTION WOULD HELP HER BREATHING IN THE LONG RUN. 6. DISCUSSED WITH RN AND PATIENT. 7. WILL GET CXR PA AND LATERAL TODAY Critical Care: Critically Ill Patient Time spent with patient (mins): 25 Diagnosis/Problems Diagnosis/Problems (1) Acute asthma exacerbation Status: Acute (2) Tobacco abuse Status: Chronic (3) Morbid obesity Status: Chronic ADELIA AC MD Jul 21, 2021 09:20
--- NOTE | 2021-07-21 09:44 | Diagnostic Imaging Report ---
INDICATION: Dyspnea. FINDINGS: 2 views of the chest shows normal heart size and vascularity. There is bibasilar discoid atelectasis. No mass or infiltrate is seen. There is no effusion or pneumothorax. There is dorsal kyphosis of the spine. IMPRESSION: Bibasilar discoid atelectasis. This has developed since the prior study from 07/17/2021. Dictated by: Dictated on workstation # [id number]
[2021-07-21 12:03] VITALS: BP 145/72
[2021-07-21] MEDS ORDERED: RELABEL FOR HOME USE MC SCH ×2 (15:45)
[2021-07-21] MEDS ORDERED: ALBU2.5V4 INH (15:49)
[2021-07-21] MEDS ORDERED: FLUT1BLS IH (15:49)
[2021-07-21] MEDS ORDERED: PRED10TA22 PO (15:49)
--- NOTE | 2021-07-21 16:03 | Discharge Summary ---
Discharge Summary Hospital Course Was the Problem List Reviewed?: Yes Problems/Dx: (1) Acute asthma exacerbation Status: Acute (2) Acute respiratory failure with hypoxia Status: Acute (3) Tobacco abuse Status: Chronic (4) Morbid obesity Status: Chronic Hospital Course Date of Admission: Jul 17, 2021 at 08:36 Admission Diagnosis : Acute asthma exacerbation Family Physician/Provider: RositaLocal Physician Date of Discharge: 07/21/21 Discharge Diagnosis: Acute asthma exacerbation, acute respiratory failure with hypoxia. morbid obesity, tobacco abuse Hospital Course: Gilma Graham is a 30 year old female with PMH childhood asthma, tobacco abuse, morbid obesity, who presented with shortness of breath and was admitted with acute asthma exacerbation. She was started on steroids and breathing treatments. She was requiring supplemental oxygen. Pulmonology was consulted and assisted with her care. Her peak flows were severely diminished. She was started on Breo Ellipta. She improved and was not requiring any supplemental oxygen at the time of discharge. She was given an albuterol inhaler and a Breo Ellipta on discharge. She was also prescribed a course of steroids. She should establish care with a primary physician at [facility]. Labs and Pending Lab Test: Microbiology 07/17/21 Urine Culture - Final, Complete 3 or more isolates 07/17/21 Blood Culture - Preliminary, Resulted No growth Home Meds Active Prednisone 10 Mg Tab.ds.pk 10 Mg PO DAILY Take 6 tabs(60mg)daily,decrease by 1 tab(10mg)every other day. Breo Ellipta 200-25 Mcg INH (Fluticasone/Vilanterol) 1 Each Blst.w.dev 1 Each IH DAILY 30 Days Albuterol Sulfate 2.5 Mg/3 Ml Vial.neb 2.5 Mg INH RTQ2H PRN 14 Days Reported Ibuprofen 200 Mg Tablet 400 Mg PO DAILY PRN TAKES 2 (200MG) TABLETS Tylenol Extra Strength (Acetaminophen) 500 Mg Tablet 1,000 Mg PO DAILY PRN TAKES 2 (500MG) TABLETS Assessment/Pt Instructions Take medications as prescribed. Complete your course of steroids. Establish with a primary care doctor at the [facility]. Return with worsening shortness of breath or if you feel like you are getting worse. Discharge Planning: <30 minutes discharge planning Discharge Instructions Discharge Diet: No Restrictions Activity as Tolerated: Yes Consultations Pulmonology Discharge Physical Examination Vital Signs Vital Signs Date Time Temp Pulse Resp B/P (MAP) Pulse Ox O2 Delivery O2 Flow Rate FiO2 07/21/21 14:42 Room Air 07/21/21 14:40 94 2.00 07/21/21 12:03 36.7 93 20 145/72 (96) General Appearance: No Apparent Distress, Obese Respiratory: No Respiratory Distress, Wheezing Cardiovascular: Regular Rate, Rhythm, No Edema, No Murmur Gastrointestinal: Normal Bowel Sounds, Non Tender, Soft Extremity: Normal Inspection, Non Tender, No Pedal Edema Skin: Normal Color, Warm/Dry Neurologic/Psychiatric: Alert, Oriented x3, No Motor/Sensory Deficits, Normal Mood/Affect Allergies: Coded Allergies: No Known Drug Allergies (Unverified , 04/09/14) Copy Copies To 1: [facility] Discharge Summary Date of Admission Jul 17, 2021 at 08:36 Date of Discharge Discharge Date: Jul 21, 2021 Discharge Time: 16:02 Admission Diagnosis Acute asthma exacerbation Discharge Diagnosis Acute asthma exacerbation, acute respiratory failure with hypoxia, tobacco abuse, morbid obesity (1) Acute asthma exacerbation Status: Acute (2) Acute respiratory failure with hypoxia Status: Acute (3) Tobacco abuse Status: Chronic (4) Morbid obesity Status: Chronic ROSAURA ALMONTE MD Jul 21, 2021 16:02
[2021-07-21 16:20] VITALS: BP 122/81
[2021-07-21] MEDS ORDERED: RT--FLUTICASONE/SALMETEROL 232-14 (AIRDUO RespiCLICK) IH SCH (16:30)
[2021-07-22] MEDS ORDERED: predniSONE 20 MG TAB PO SCH (07:00)
== END 2021-07-21 17:20 | disposition home or self-care (01) | DRG 189 ==
LOC: EDUNIT# 05:32 → ER 05:35 → 4TH 08:36
PROVIDERS: ADMIT Internal Medicine; ATTEND Internal Medicine
PROC: 5A0945A Assistance with Respiratory Ventilation, 24-96 Consecutive Hours, High Flow/Velocity Cannula (ICD-10-PCS; principal; 2021-07-17)
DX: J96.01 Acute respiratory failure with hypoxia (principal); J45.901 Unspecified asthma with (acute) exacerbation; Z68.42 Body mass index [BMI] 45.0-49.9, adult; F17.210 Nicotine dependence, cigarettes, uncomplicated; E66.01 Morbid (severe) obesity due to excess calories; Z20.822 Contact with and (suspected) exposure to COVID-19
CPT/HCPCS: 36415; 71045; 71046; 80053; 81000; 83605; 84145; 84703; 85025; 85379; 85610; 85730; 86141; 87040; 87088; 87420; 87636; 94150; 94640; 94760; 94761